=== PATIENT | male | born 1950 | race Caucasian/White ===

== ENCOUNTER 2023-10-25 12:40 | Outpatient (CLI) | payer MEDICARE, OTHER, SELFPAY | END 2023-10-25 12:41 | disposition home or self-care (01) | LOC: ANHAUDIO 12:44 | PROVIDERS: PCP Internal Medicine; Visit Provider Otolaryngology | DX: H90.3 Sensorineural hearing loss, bilateral (principal) | CPT/HCPCS: 92557; 92567 ==

== ENCOUNTER 2024-12-30 12:36 | Outpatient (CLI) | payer MEDICARE, OTHER, SELFPAY ==
--- OUTSIDE RECORDS SUMMARY | 2024-12-30 12:39 | XMS_ITS | Encounter Summary ---
Author Organization [facility] Health Address [address] [place] [address] Care Team Providers Care Rn Anesthetist Name Role Phone Maciej Castaneda MD Primary Care Provider [phone] Encounter Details Date Type Department Care Team (Late st Contact Info) Description 10/16/2022 Lab Requisition [facility] - DermPath Lab [address] [place] [phone] Cindy Hawkins DO [address] [facility] [address] [place] [address] Social History Tobacco Use Types Packs/Day Years Used Date Smoking Tobacco: Former Cigarettes 1 35 Smokeless Tobacco: Never Comments:QUIT 2YRS. 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 Gender Identity Not on file Sexual Orientation Not on file documented as of this encounter Plan of Treatment Not on file documented as of this encounter Procedures Procedure Name Priority Date/Time Associated Diagnosis Comments DERMATOPATHOLOGY Routine 10/16/2022 10:5 5 AM CDT documented in this encounter Results * DERMATOPATHOLOGY (10/16/2022 10:55 AM CDT) Case Report Dermatopathology Report Case: [id number] Authorizing Provider: Cindy aHwkins DO Collected: 10/16/2022 10:55 AM Ordering Location: [facility] DermPath Lab Received: 10/16/2022 03:53 PM Pathologist: Ernestine Cristina MD Specimen: Skin, mid upper back 3 5:38 PM CDT DERMATOPATHOLOGY LABORATORY Final Diagnosis Specimen A. 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 The specimen consists of a shave biopsy measuring 6x5x1 mm. Jar 0. 3 5:38 PM CDT DERMATOPATHOLOGY LABORATORY Microscopic Description Specimen A. SKIN, mid upper back: The epidermis shows parakeratosis, full thickness disorderly maturation of keratinocytes, mitoses at different levels, and dyskeratotic cells. 3 5:38 PM CDT DERMATOPATHOLOGY LABORATORY Disclaimer An external and internal positive and negative controls are appropriate for the histochemical, immunohistochemical and immunofluorescence stain(s) in this case (if any), except where stated explicitly. The performance characteristics of the stain(s) cited in this report were developed and its performance characteristic determined by the Dermatopathology Laboratory at [facility], directed by Dr. Kya Cristina. These tests need not be, and therefore are not, approved by the [place] Food and Drug Administration. The tests are used for clinical purposes. Billing Codes Specimen Charges Stain Charges 30835 1 3 5:38 PM CDT DERMATOPATHOLOGY LABORATORY Embedded Images 3 5:38 PM CDT DERMATOPATHOLOGY LABORATORY Pathology/Cytolo gy TISSUE SPECIMEN FROM SKIN / Unknown 10/16/2022 10:55 AM CDT 10/16/2022 3:53 PM CDT us Cindy Hawkins DO LAB - PATHOLOGY/CYTOLOGY ORDERABLES Final Result DERMATOPATHOLOGY LABORATORY [facility] - Department of Dermatology [facility] [address] [place], [place] [id number] [place] [address] documented in this encounter Visit Diagnoses Not on filedocumented in this encounter Care Teams Rn Anesthetist Relationship Specialty [place] [address] [address] [facility] [place] [address] [place] [phone] PCP - General 08/15/18 documented as of this encounter
--- OUTSIDE RECORDS SUMMARY | 2024-12-30 12:39 | XMS_ITS | Encounter Summary ---
Author Organization [facility] Address [address] [place] [address] Phone Care Team Providers Care Fuel Storage Technician Name Role Phone Sigrid Castaneda MD Primary Care Provider Ruiz Palafox MD Unavailable Simon Lloyd MD Unavailable Karin Almaguer NP Unavailable Cindy Hawkins DO Unavailable Adalberto Apple MD Unavailable Encounter Details Date Type Department Care Team (Late st Contact Info) Description 08/27/2017 Orders Only [facility] Provider, MD [address] [place] [address] Social History Tobacco Use Types Packs/Day Years Used Date Smoking Tobacco: Former Sex and Gender Information Value Date Recorded Sex Assigned at Not on file 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 us Historical Provider LAB BLOOD ORDERABLES Afia l Result documented in this encounter Visit Diagnoses Not on filedocumented in this encounter Care Teams Fuel Storage Technician Relationship Specialty Start Date End Date Sigrid Castaneda MD PCP - General 07/30/16 Ruiz Palafox MD [address] [place] [address] Radiation Oncologist Radiation Oncology 01/21/18 Simon Lloyd MD [address] [place] [address] Consulting Physician Urology 01/21/18 Karin Almaguer NP [address] [place] [address] Nurse Practitioner Nurse Practitioner 07/05/20 Cindy Hawkins DO [address] [place] [address] Referring Physician Internal Medicine 11/01/23 [place] [address] [place] [address] Consulting Physician Vascular Surgery 12/16/24 documented as of this encounter
--- OUTSIDE RECORDS SUMMARY | 2024-12-30 12:39 | XMS_ITS | Clinical Summary ---
Author Organization [facility] Address [address] [place] [address] Care Team Providers Care Nurse Unit Manager Name Role Phone Maciej Castaneda MD Primary Care Provider Ruiz Palafox MD Unavailable Simon Lloyd MD Unavailable Karin Almaguer NP Unavailable Cindy Hawkins DO Unavailable Adalberto Davis MD Unavailable Allergies No known active allergies Medications FLUoxetine 10 mg capsuleIndicati ons:Anxiety with Depression Take 1 tablet/capsule (10 mg total) by mouth nightly 0 Active lisinopriL (PRINIVIL,ZESTR IL) 10 mg tabletIndicatio ns:hypertension Take 1 tablet (10 mg total) by mouth nightly 2 Active lovastatin (MEVACOR) 20 mg tabletIndicatio ns:hyperlipidem ia Take 1 tablet (20 mg total) by mouth nightly 2 Active hydroxychloroqu ine (PLAQUENIL) 200 mg tabletIndicatio ns:Lichen Planus Take 1 tablet (200 mg total) by mouth nightly 4 Active mirtazapine (REMERON) 15 mg tabletIndicatio ns:major depressive disorder Take 1 tablet (15 mg total) by mouth nightly 4 Active cholecalciferol 25 mcg (1,000 unit) tabletIndicatio ns:Vitamin D Deficiency Take 1 tablet (1,000 Units total) by mouth nightly Active peg 400-propylene glycol (SYSTANE) 0.4-0.3 % ophthalmic solutionIndicat ions:Dry Eye Administer 1 drop into both eyes 3 (three) times a day as needed (Dry eyes) Active calcium carbonate (TUMS) 500 mg (200 mg elemental calcium) chewable tabletIndicatio ns:Heartburn Take 1 tablet/chew tab (500 mg total) by mouth as needed for indigestion or heartburn Active senna-docusate (PERICOLACE) 8.6-50 mg Take 1 tablet by mouth daily as needed for constipation 30 tablet 5 Active oxyCODONE (ROXICODONE) 5 mg immediate release tabletIndicatio ns:Pain Take 1 tablet (5 mg total) by mouth every 4 (four) hours as needed for pain 5 tablet 5 Active acetaminophen 500 mg capsule Take 2 capsules (1,000 mg total) by mouth every 6 (six) hours as needed for fever 5 Active aspirin 81 mg chewable tablet Take 1 tablet (81 mg total) by mouth daily 30 tablet 5 12/17/19 26 Active Active Problems Problem Noted Date Diagnosed Date AAA (abdominal aortic aneurysm) without rupture 12/15/2024 Infrarenal abdominal aortic aneurysm (AAA) witho ut rupture 11/13/2024 Assessment & Plan (12/15/2024 10:37 AM CDT): 12/15: s/p EVAR - Bedrest overnight - OU, Q2 hr NV checks - Monitor incisions for bleeding/hematoma - Advance diet as tolerated - Pain control - continue ASA and statin - OOB, POD #1 Moderate major depression 10/26/2024 Lichen planus 12/24/2022 Assessment & Plan (12/15/2024 10:34 AM CDT): - continue home plquenil when able Medicare annual wellness visit, subsequent 01/04 Paresthesia of skin 01/04/2021 Dyslipidemia 09/28/2020 Abnormal EKG 09/28/2020 Cervical spondylosis without myelopathy 05/29/19 20 Trigger finger 02/20/2019 Overview (02/20/2019): Added automatically from request for surgery [id number] Anxiety 10/01/2018 OAB (overactive bladder) 10/01/2018 Gastroesophageal reflux disease with esophagitis 08/18/2018 Assessment & Plan (08/18/2018 9:45 AM CDT): The patient's heartburn symptoms have improved on Protonix 40 mg daily. The patient is aware of reflux instructions. The patient's primary complaint is that of nighttime regurgitation of gastric contents. Reglan 10 mg p.o. Q.h.s. will be prescribed. The side effects of the medication were discussed. Esophageal dysphagia 08/18/2018 Assessment & Plan (08/18/2018 9:44 AM CDT): The patient's dysphagia has improved following empiric Savary dilation. Esophageal biopsies demonstrated no evidence of the eosinophilic esophagitis. History of adenomatous polyp of colon 08/18/2018 Assessment & Plan (08/18/2018 9:45 AM CDT): The patient is due for surveillance colonoscopy soon. He plans on getting a colonoscopy in February 2018. Urinary incontinence 08/12/2018 Prostate cancer 01/21/2018 Cancer Staging:Clinical:Stage I(cT1c, cN0, cM0, PSA: 6.8, Grade Group: 1) - Signed by Karin Almaguer NP on 01/21/2018 Encounter for follow-up surveillance of prostate cancer 01/21/2018 CLL (chronic lymphocytic leukemia) ([facility]) 07/2016 Chronic obstructive lung disease 11/24/2014 Dermatochalasis 08/18/2014 Hypertension 09/17/2013 Assessment & Plan (12/15/2024 10:33 AM CDT): - OU, VS q2 hrs and PRN - Home regimen: lisinopril - Resume home lisinopril when able Hyperlipidemia 09/17/2013 Contracture of palmar fascia 05/26/2013 Presbyopia 05/26/2013 Encounters Date Type Department Care Team Description 12/22/2024 Orders Only [facility] Surgery [id number] [place] [address] Medical Office Building [address] [address] Adalberto Davis MD Infrarenal abdominal aortic aneurysm (AAA) without rupture (Primary Dx) 12/17/2024 Telephone [facility] Surgery [id number] [place] [address] Medical Office Building 1 [address] [address] Ellie Khoury RMA LOW GRADE TEMP 12/15/2024 7:33 AM CDT Anesthesia Event [facility] Electrophysiology Lab [address] [place] [address] Suad Quiles MD Gilbert, Kelly L., RN 12/15/2024 7:30 AM CDT - 12/15/2024 11:[address] [facility] Electrophysiology Lab [address] [place] [address] Adalberto Davis MD EVAR - Aorta Endovascular Repair 12/15/2024 5:37 AM CDT - 12/16/2024 4:12 PM CDT Hospital Encounter [address] [address] Adalberto Davis MD Infrarenal abdominal aortic aneurysm (AAA) without rupture Discharge Disposition: Discharge to home or self care 12/08/2024 8:30 AM CDT Pre-Admission Testing [facility] for Preoperative Assessment and Planning [facility] ([facility]) [address] [place] [address] Preoperative testing (Primary Dx); Abdominal aortic aneurysm (AAA), unspecified part, unspecified whether ruptured 11/16/2024 Documentation [facility] Surgery [address] [place] [address] Medical Office Building [address] [address] Sandy Bravo NP 11/12/2024 1:07 PM CDT - 11/12/2024 11:59 PM CDT Hospital Encounter [facility] Radiology [address] [place] [address] Infrarenal abdominal aortic aneurysm (AAA) without rupture Discharge Disposition: Discharge to home or self care 11/09/2024 8:45 AM CDT Office Visit [facility] Surgery [address] [place] [address] [address] [place] [phone] Adalberto Davis MD Infrarenal abdominal aortic aneurysm (AAA) without rupture 11/09/2024 8:00 AM CDT Ancillary Procedure [facility] Vascular Lab [address] [place] [address] Office [address] [place] [phone] Infrarenal abdominal aortic aneurysm (AAA) without rupture 10/26/2024 9:40 AM CDT Office Visit [facility] [address] [place] [phone] Kelsea Campbell MD CLL (chronic lymphocytic leukemia) (CMS/HCC) (HCC) (Primary Dx); Moderate major depression (HCC); Chronic obstructive pulmonary disease, unspecified COPD type (HCC) 10/26/2024 9:15 AM CDT Lab [facility] [address] [place] [address] CLL (chronic lymphocytic leukemia) (CMS/HCC) (HCC) 10/20/2024 11:40 AM CDT Telemedicine [facility] Radiation Oncology Formerly [facility] [place] [address] Karin Almaguer NP Prostate cancer (HCC) (Primary Dx); Encounter for follow-up surveillance of prostate cancer 10/15/2024 Orders Only [facility] [place] [address] Karin Almaguer NP Prostate cancer (HCC) (Primary Dx) from Last 3 Months Immunizations Immunization Administration Dates Next Due Influenza, Quadrivalent, Krupa l Culture-based MDCK, Antibiotic Free, Intramuscular 03/04/2019 Influenza, Quadrivalent, Hig h Dose, Preservative Free, Intrr 02/09/2021,02/02/2020 Influenza, Trivalent, High D ose, Split, Preservative Free, Intramuscular 02/19/2020,02/26/2018,02/25/2018,02/18,02/09/2016,2015 Influenza, Trivalent, IM (MDV) 02/25/2014 Influenza, Unspecified 02/01/2021,2019,02/02/2020,03/04,02/18/2018,01/16/2017,02/09/2016 ,2015 Pfizer SARS-CoV-2 Monovalent Vaccination (12+ Yrs) PURPLE 03/11/2021,07/21/2020,06/29/2020 Pneumococcal Conjugate PCV 13 01/29/2019, 016 Pneumococcal Polysaccharide PPV23 02/02/2020,05/2013 Tdap 09/17/2013 ZOSTER LIVE 03/19/2016,10/14/2013 ZOSTER Recombinant 09/13/2020,05/20/2020 Surgical History Surgery Date Site/Laterality Comments FL RELEASE INTRINSIC MUSCLES HAND EACH MUSCLE 05/20/2013 - 05/19/2014 Right Release Of Finger Scar Contracture - little finger COLONOSCOPY W/ POLYPECTOMY 10/18/2018 - 11/16/2018 negative. no polyps with last colonoscopy PROSTATE BIOPSY several prior to radiation treatments. None since OTHER SURGICAL HISTORY 05/20/2018 - 06/19/2018 UROLIFT--has helped with urination. but has urinary frequency OTHER SURGICAL HISTORY PTNS-Percutaneous Tibial Nerve Stimulation for urinary incontinence treatment KNEE SURGERY 05/20/2011 - 05/19/2012 Left SHOULDER SURGERY Left INSERTION PROSTATE RADIATION SEED CARDIAC CATHETERIZATION 12/15/2024 Abdomen/N/A Procedure: EVAR - Aorta Endovascular Repair; Surgeon: Adalberto Davis MD; Location: [facility]; Service: Vascular; Laterality: N/A; Medical devices from this surgery are in the Medical Devices section. Medical History Medical History Date Comments Hypertension well controlled with meds Hyperlipidemia well controlled with meds Depression well controlled with meds Anxiety well controlled with meds Urinary frequency diff. complete ly emptying bladder Urinary incontinence being treat ed with Percutaneous tibial nerve stimulation (PTNS) Cancer (HCC) prostate--treate d with radiation only Family History Medical History Relation Name Comments Heart attack Brother Heart attack Father Cancer Other Family history of malignant neoplasm - (Added by TW Conv) Breast cancer Sister Family history of malignant neoplasm of breast - (Added by TW Conv) Relation Name Status Comments Brother (Age 59) Father (Age 63) Mother (Age 89) Other Sister Alive Social History Tobacco Use Types Packs/Day Years Used Date Smoking Tobacco: Former Cigarettes 1 39 1 97 - 2016 Passive Smoke Exposure: Never Smokeless Tobacco: Never Tobacco Cessation:Counseling Given: Not Answered Alcohol Use Standard Drinks/Week Comments Yes 3 (1 standard drink = 0.6 oz pur e alcohol) AUDIT-C Answer Date Recorded Q1: How often do you have a drink containing alcohol? 4 or more times a week 12/15/2024 Q2: How many drinks containi ng alcohol do you have on a typical day when you are drinking? 1 or 2 Q3: How often do you have si x or more drinks on one occasion? Never 12/15/2024 Personal Safety Answer Date Recorded Have you ever been in or are you currently in a harmful physical or emotional relationship or is someone making you feel afraid or unsafe? 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 Gender Identity Not on file Sexual Orientation Straight 09/25/2020 6: 45 PM CDT Obstetrics History Last Filed Vital Signs Vital Sign Reading Time Taken Comments Blood Pressure 120/58 12/16/2024 3:39 PM CDT Pulse 60 12/16/2024 3:39 PM CDT Temperature 36.7 C (98.1 F) 12/16/2024 3:39 PM CDT Respiratory Rate 18 12/16/2024 3:39 PM CDT Oxygen Saturation 95% 12/16/2024 3:39 PM CDT Inhaled Oxygen Concentration - - Weight 98.2 kg (216 lb 9.6 oz) 12/15/2024 1:02 P M CDT Height 167.6 cm (5' 6) 12/15/2024 1:02 PM CDT Body Mass Index 34.96 12/15/2024 1:02 PM CDT Plan of Treatment Health Maintenance Due Date Last Done Comments Hepatitis C Screening 1950 Hepatitis B Screening 1966 Lung Cancer Screening 1998 Well Visit 65+ 2013 Depression Screening 01/01/2019 01/01/2018 DTaP/Tdap/Td Vaccine (2 - Td or Tdap) 09/18/2023 09/17/2013 Covid-19 Vaccine (4 - 2023-2 5 season) 2024 03/11/2021, 07/21/2020, 06/29/2020 Influenza Vaccine (#1) 2025 , 02/01/2021, 02/19/2020, Additional history exists Fall Risk Assessment 12/16/2025 12/16/2024 Pneumococcal vaccine 65+ Completed 020, 01/29/2019, 02/29/2016, Additional history exists Zoster Vaccine Completed 09/13/2020, 05/2020, 03/19/2016, Additional history exists Abdominal Aortic Aneurysm (A AA) Screen Completed 12/22/2024, 12/15/2024, 12/08/2024, Additional history exists Medical Devices Implanted Type Area Scientific Software Developer Device Identifier Shelf Expiration Date Model / Serial / Lot [employer] Stent Graft Iliac Leg Extension [id number] Treo Polyester Nitinol 40-H9-70-100 u - [id number] Implanted:Qt y: 1 on 12/15/2024 by Neo Gibson MD at [facility] Endoprosthesis Left: Common Iliac Artery [employer] 06/19/2027 28-L2-17 -100U / / [id number] [employer] Stent Graft Iliac Leg Extension [id number] Treo Polyester Nitinol 74-O9-65-100 u - [id number] Implanted:Qt y: 1 on 12/15/2024 by Neo Gibson MD at [facility] Endoprosthesis Right: Common Iliac Artery [employer] 01/02/2027 28-L2-15 -100U / / [id number] [employer] Closure Repair Femoral Artery Suture Mediated Perclose Prostyle 41592-60 - [id number] Implanted:Qt y: 1 on 12/15/2024 by Neo Gibson MD at [facility] Vascular Closure Device Right: Common Femoral Artery [employer] 08/17/2026 00124-91 / / [id number] [employer] Closure Repair Femoral Artery Suture Mediated Perclose Prostyle 34217-68 - [id number] Implanted:Qt y: 1 on 12/15/2024 by Neo Gibson MD at [facility] Vascular Closure Device Right: Common Femoral Artery [employer] 08/17/2026 09340-19 / / [id number] [employer] Closure Repair Femoral Artery Suture Mediated Perclose Prostyle 46701-46 - [id number] Implanted:Qt y: 1 on 12/15/2024 by Neo Gibson MD at [facility] Vascular Closure Device Left: Common Femoral Artery [employer] 08/17/2026 83657-54 / / [id number] [employer] Closure Repair Femoral Artery Suture Mediated Perclose Prostyle 86336-80 - [id number] Implanted:Qt y: 1 on 12/15/2024 by Neo Gibson MD at [facility] Vascular Closure Device Left: Common Femoral Artery [employer] 08/17/2026 44049-05 / / [id number] [employer] Closure Repair Femoral Artery Suture Mediated Perclose Prostyle 61115-46 - [id number] Implanted:Qt y: 1 on 12/15/2024 by Neo Gibson MD at [facility] Vascular Closure Device Right: Common Femoral Artery [employer] 08/17/2026 24691-76 / / [id number] [employer] Graft Treo Abd Aortic Stent 24mm Bifurcate 100mm 87-Y4-79-100 u - [id number] Implanted:Qt y: 1 on 12/15/2024 by Neo Gibson MD at [facility] N/A: Abdominal Aorta [employer] 06/28/2027 28-B2-24 -100U / / [id number] Description:Treo Main Body Z one 9 Procedures Procedure Name Priority Date/Time Associated Diagnosis Comments POTASSIUM, WHOLE BLOOD STAT 12/16/2024 8:37 AM CDT EGFR Routine 12/16/2024 5:19 AM CDT BASIC METABOLIC PANEL Routine 12/16/2024 5:19 AM CDT CBC WITHOUT DIFFERENTIAL Routine 12/16/2024 5:19 AM CDT EVAR - AORTA ENDOVASCULAR REPAIR Routine 12/15/2024 10:24 AM CDT Infrarenal abdominal aortic aneurysm (AAA) without rupture POCT ACTIVATED CLOTTING TIME, LOW RANGE Routine 12/15/2024 10:24 AM CDT POCT ACTIVATED CLOTTING TIME, LOW RANGE Routine 12/15/2024 9:50 AM CDT FL AN PROCEDURE PLACEHOLDER Routine 12/15/2024 9:44 AM CDT POCT ACTIVATED CLOTTING TIME, LOW RANGE Routine 12/15/2024 9:17 AM CDT POCT ACTIVATED CLOTTING TIME, LOW RANGE Routine 12/15/2024 9:08 AM CDT POCT ACTIVATED CLOTTING TIME, LOW RANGE Routine 12/15/2024 9:01 AM CDT FL AN PROCEDURE PLACEHOLDER Routine 12/15/2024 8:33 AM CDT FL AN ELECTIVE ENDOTRACHEAL AIRWAY Routine 12/15/2024 8:33 AM CDT FL AN PROCEDURE PLACEHOLDER Routine 12/15/2024 8:03 AM CDT POC BLOOD GAS AND CHEMISTRIES, ARTERIAL Routine 12/15/2024 6:29 AM CDT MANUAL DIFFERENTIAL Routine 12/08/2024 9 :40 AM CDT Preoperative testing SENIOR STAFF REVIEW Routine 12/08/2024 9 :40 AM CDT Preoperative testing Abdominal aortic aneurysm (AAA), unspecified part, unspecified whether ruptured EGFR Routine 12/08/2024 9:40 AM CDT Preoperative testing COMPREHENSIVE METABOLIC PANEL Routine 12/08/2024 9:40 AM CDT Preoperative testing CBC WITH AUTO DIFFERENTIAL Routine 12/08/2024 9:40 AM CDT Preoperative testing TYPE AND SCREEN 14 DAY Routine 12/08/2024 9:40 AM CDT Preoperative testing CPAP APTT ALGORITHM Routine 12/08/2024 9 :40 AM CDT Preoperative testing PROTIME-INR Routine 12/08/2024 9:40 AM CDT Preoperative testing Abdominal aortic aneurysm (AAA), unspecified part, unspecified whether ruptured URINALYSIS AND REFLEX TO MICROSCOPIC AND CULTURE Routine 12/08/2024 9:40 AM CDT Preoperative testing ECG 12-LEAD Routine 12/08/2024 9:01 AM CDT Preoperative testing CTA ABDOMEN PELVIS W WO CONTRAST Schedule Routine, Read Routine (OP Routine) 11/12/2024 1:29 PM CDT Infrarenal abdominal aortic aneurysm (AAA) without rupture US DUPLEX SCAN OF AORTA: INFERIOR VENA CAVA, ILIAC, COMPLETE Schedule Routine, Read Routine (OP Routine) 11/09/2024 8:33 AM CDT Infrarenal abdominal aortic aneurysm (AAA) without rupture EGFR Routine 10/26/2024 8:58 AM CDT CLL (chronic lymphocytic leukemia) (CMS/HCC) (HCC) BLOOD SMEAR REVIEW Routine 10/26/2024 8: 58 AM CDT CLL (chronic lymphocytic leukemia) (CMS/HCC) (HCC) DIFFERENTIAL AUTO Routine 10/26/2024 8:5 8 AM CDT CLL (chronic lymphocytic leukemia) (CMS/HCC) (HCC) CRP, HIGH SENSITIVITY Routine 10/26/2024 8:58 AM CDT CLL (chronic lymphocytic leukemia) (CMS/HCC) (HCC) IMMUNE COMPETENCE Routine 10/26/2024 8:5 8 AM CDT CLL (chronic lymphocytic leukemia) (CMS/HCC) (HCC) IGG Routine 10/26/2024 8:58 AM CDT CLL (chronic lymphocytic leukemia) (CMS/HCC) (HCC) COMPREHENSIVE METABOLIC PANEL Routine 10/26/2024 8:58 AM CDT CLL (chronic lymphocytic leukemia) (CMS/HCC) (HCC) CBC WITH AUTO DIFFERENTIAL Routine 10/26/2024 8:58 AM CDT CLL (chronic lymphocytic leukemia) (CMS/HCC) (HCC) LACTATE DEHYDROGENASE Routine 10/26/2024 8:58 AM CDT CLL (chronic lymphocytic leukemia) (CMS/HCC) (HCC) PSA, TOTAL AND FREE Routine 10/15/2024 1 :17 PM CDT Prostate cancer (HCC) from Last 3 Months Results * Potassium, whole blood (12/16/2024 8:37 AM CDT) Pathologist [facility] Potassium, bld 4.7 3.3 - 4.9 mmol/L Blood 12/16/2024 8:37 AM CDT 12/16/2024 8:46 AM CDT Ani Hare PATTERN ATTENDANT LAB BLOOD ORDERABLES Fin al Result [facility] Department [place] [address] * (ABNORMAL) eGFR (12/16/2024 5:19 AM CDT) Pathologist [facility] eGFR 48(L) >=60 mL/min/1. 73 m2 Comment: Interpretive Data Reference Interval Normal >/= 90 mL/min/1.73m2 Mildly decreased* 60 - 89 mL/min/1.73m2 Mildly to moderately decreased 45 - 59 mL/min/1.73m2 Moderately to severely decreased 30 - 44 mL/min/1.73m2 Severely decreased 15 - 29 mL/min/1.73m2 Kidney Failure < 15 mL/min/1.73m2 *Relative to young adult level Estimated glomerular filtration rate is determined by the 2020 CKD-EPI equation recommended by the National Kidney Foundation (A Unifying Approach to GFR Estimation: Recommendations of the NKF-ASK Task Force on Reassessing the Inclusion of Race in Diagnosing Kidney Disease, JASN 2020). The CKD-EPI equation should not be used for patients with unstable renal function and has not been validated in children and those over 70. Current interpretive data was last reviewed 2021. Blood 12/16/2024 5:19 AM CDT 12/16/2024 6:55 AM CDT Adalberto Davis MD LAB BLOOD ORDERABLES Final R esult [facility] [place] [address] * (ABNORMAL) CBC without differential (12/16/2024 5:19 AM CDT) WBC 30.26(H) 3.80 - 9.90 K/cumm Hgb 11.2(L) 13.0 - 17.5 g/dL [facility] Hct 34.3(L) 38.9 - 50.3 % [facility] Plt 170 150 - 400 K/cumm [facility] MPV 10.9 9.1 - 12.3 fL [facility] RBC 3.59(L) 4.30 - 5.80 M/cumm [facility] MCV 95.5 81.3 - 96.4 fL [facility] MCH 31.2 27.1 - 33.3 pg [facility] MCHC 32.7 32.3 - 35.7 g/dL [facility] RDW CV 13.2 11.1 - 14.9 % [facility] RDW SD 46.4 35.7 - 48.1 fL [facility] NRBC abs 0.00 0.00 - 0.01 K/cumm [facility] Blood 12/16/2024 5:19 AM CDT 12/16/2024 6:56 AM CDT Adalberto Davis MD LAB BLOOD ORDERABLES Final R esult Performing Organization Address City/[facility]/ZIP Co de Phone Number [facility] [place] [address] * (ABNORMAL) Basic metabolic panel (12/16/2024 5:19 AM CDT) Sodium 140 135 - 145 mmol/L Potassium, pl 5.2(H) 3.3 - 4.9 mmol/L [facility] Chloride 107 97 - 110 mmol/L [facility] CO2 24 22 - 32 mmol/L [facility] Anion gap 9 2 - 15 mmol/L [facility] BUN 25 6 - 25 mg/dL [facility] Creatinine 1.49(H) 0.80 - 1.30 mg/dL [facility] Glucose 125 70 - 199 mg/dL [facility] Comment: Interpretive Data Fasting glucose >/= 126 mg/dl is diagnostic for diabetes. Fasting is defined as no caloric intake for at least 8 hours. Fasting glucose between 100 mg/dl to 125 mg/dl is diagnostic of prediabetes. In a patient with classic symptoms of hyperglycemia or hyperglycemic crisis, a random glucose >/= 200 mg/dl is diagnostic for diabetes. In the absence of unequivocal hyperglycemia, results should be confirmed by repeat testing. The classification and Diagnosis of Diabetes Diabetes Care 202; 46: S19-S40. Current interpretive data was last revised 2022. Calcium 8.6 8.5 - 10.3 mg/dL [facility] Blood 12/16/2024 5:19 AM CDT 12/16/2024 6:55 AM CDT Adalberto Davis MD LAB BLOOD ORDERABLES Final R esult Performing Organization Address [facility]/State/ZIP Co de Phone Number [facility] [place] [address] * EVAR - AORTA ENDOVASCULAR REPAIR (12/15/2024 10:24 AM CDT) Anatomical Region Laterality Modality X-Ray Angiograph y Narrative 12/16/2024 3:27 PM CDT Please see OpNote for result. Adalberto Davis MD CV CARDIAC CATH PROCEDURES F inal Result * POCT Activated clotting time, low range (12/15/2024 10:24 AM CDT) ACT 126 123 - 168 sec POC Device Number [id number] [facility] Blood 12/15/2024 10:2 4 AM CDT 12/15/2024 10:24 AM CDT Adalberto Davis MD LAB POCT ORDERABLES - DEVICE Final Result Performing Organization Address City/[facility] Co de Phone Number [facility] [place] [address] * (ABNORMAL) POCT Activated clotting time, low range (12/15/2024 9:50 AM CDT) ACT 255(H) 123 - 168 sec POC Device Number [id number] [facility] Blood 12/15/2024 9:50 AM CDT 12/15/2024 9:50 AM CDT Adalberto Davis MD LAB POCT ORDERABLES - DEVICE Final Result [facility] Department [place] [employer] [place] [address] * FL AN PROCEDURE PLACEHOLDER (12/15/2024 9:44 AM CDT) Narrative Kyra Gonzales CRNA - 12/15/2024 9:44 AM CDT Kyra Gonzales CRNA 12/15/2024 9:45 AM Peripheral IV Catheter Patient location: OR Staff: Supervising provider: Suad Quiles MD Placed by: LABORER STORES: Kyra Gonzales CRNA Preprocedure prep: Prep solution: chlorhexadine PPE: gloves and provider hat/mask PIV line: Laterality: right Site: hand Catheter size: 18 g Procedure details: good blood return and occlusive dressing applied Number of attempts: 2 Other sites attempted: one attempt pts right FA. soft yves pressure dressing applied and secured with tape Assessment: Events: patient tolerated procedure well with no complications us Suad Quiles MD ANESTHESIA ORDERABLES Fi nal Result * (ABNORMAL) POCT Activated clotting time, low range (12/15/2024 9:17 AM CDT) ACT 282(H) 123 - 168 sec POC Device Number [id number] [facility] Blood 12/15/2024 9:17 AM CDT 12/15/2024 9:17 AM CDT Adalberto Davis MD LAB POCT ORDERABLES - DEVICE Final Result Performing Organization Address [facility] Co de Phone Number [facility] [place] [place] [address] * (ABNORMAL) POCT Activated clotting time, low range (12/15/2024 9:08 AM CDT) ACT 244(H) 123 - 168 sec POC Device Number [id number] [facility] Blood 12/15/2024 9:08 AM CDT 12/15/2024 9:08 AM CDT Adalberto Davis MD LAB POCT ORDERABLES - DEVICE Final Result Performing Organization Address City/[facility]/ZIP Co de Phone Number [facility] [employer] [place] [place] [address] * (ABNORMAL) POCT Activated clotting time, low range (12/15/2024 9:01 AM CDT) ACT 229(H) 123 - 168 sec POC Device Number [id number] [facility] Blood 12/15/2024 9:01 AM CDT 12/15/2024 9:01 AM CDT us Adalberto Davis MD LAB POCT ORDERABLES - DEVICE Final Result [facility]ACK RIVER[facility] [place] [address] * FL AN ELECTIVE ENDOTRACHEAL AIRWAY, FL AN PROCEDURE PLACEHOLDER (12/15/2024 8:33 AM CDT) Narrative Kyra Gonzales CRNA - 12/15/2024 8:33 AM CDT Kyra Gonzales CRNA 12/15/2024 8:33 AM Airway Patient location: OR Urgency: elective Date/time: 12/15/2024 7:53 AM Indications for airway management: anesthesia Difficult airway: no Staff: Supervising provider: Suad Quiles MD Placed by: LABORER STORES: Kyra Gonzales CRNA Emergent airway documentation: Risks and benefits discussed: yes Consent obtained: yes Consent given by: patient Airway prep: Preoxygenated: yes Patient position: sniffing Mask difficulty assessment: 2 - vent by mask + OA or adjuvant Spontaneous ventilation during airway: absent Sedation level during airway: GA Final airway details: Final airway type: endotracheal airway Tube type: ETT ETT size: 8.0 mm Cuffed: yes Technique used for successful ETT placement: video laryngoscopy Devices/Methods used in placement: stylet Insertion site: oral Blade type: Brandon Video blade type: De Luna Blade size: 4 Cormack-Lehane (video): grade I - full view of glottis Cuff volume: 8 mL Cuff inflated with: air ETT to lips: 22.5 cm Placement verified by: auscultation and CO2 detection Airway secured with: silk tape Number of attempts: 1 us Suad Quiles MD ANESTHESIA ORDERABLES Fi nal Result * FL AN PROCEDURE PLACEHOLDER (12/15/2024 8:03 AM CDT) Narrative Kyra Gonzales CRNA - 12/15/2024 8:03 AM CDT Kyra Gonzales CRNA 12/15/2024 8:07 AM Arterial Line End time: 12/15/2024 8:03 AM Indication: continuous blood pressure monitoring and blood sampling needed Staff: Supervising provider: Suad Quiles MD Placed by: Anesthesiologist: Suad Quiles MD Procedure prep: Prep solution: chlorhexadine/alcohol Prep: provider hat/mask, sterile gloves and sterile drape Arterial line: Catheter size: 20 gauge Catheter length: 5 cm Catheter type: wire-guided catheter Seldinger technique: yes Laterality: left Site: radial artery Line secured: tape and Tegaderm Results: good waveform and good blood return Number of attempts: 1 Assessment: Events: patient tolerated procedure well with no complications us Suad Quiles MD ANESTHESIA ORDERABLES Fi nal Result * (ABNORMAL) POC Blood Gas and Chemistries, Arterial - (12/15/2024 6:29 AM CDT) K POC 5.0(H) 3.3 - 4.9 mmol/L Comment: Interpretive Data Not all point of care methods assess for hemolysis. Confirm with instrument and retest K+ if not consistent with clinical signs and symptoms. Current Interpretive Data was last revised on 2023. Blood 12/15/2024 6:29 AM CDT 12/15/2024 6:29 AM CDT us Adalberto Davis MD LAB POCT ORDERABLES - DEVICE Final Result [facility]ACK RIVERA [facility] [place] [address] * TYPE AND SCREEN 14 DAY (12/08/2024 9:40 AM CDT) Owen, indirect Negative ABO Rh A Negative JACK GUERRA Blood 12/08/2024 9:40 AM CDT 12/08/2024 10:58 AM CDT Narrative [facility] - 12/08/2024 11:45 AM CDT Is this test being ordered in advance for a procedure?->Yes Expected date of procedure:->12/15/24 Has the patient been transfused in the past 3 months?->No Cecy Pollard NP LAB BLOOD BANK TEST ORD ERABLES Final Result Performing Organization Address [facility] Co de Phone Number [facility] [employer] [place] [place] [address] * (ABNORMAL) eGFR (12/08/2024 9:40 AM CDT) eGFR 54(L) >=60 mL/min/1. 73 m2 Comment: Interpretive Data Reference Interval Normal >/= 90 mL/min/1.73m2 Mildly decreased* 60 - 89 mL/min/1.73m2 Mildly to moderately decreased 45 - 59 mL/min/1.73m2 Moderately to severely decreased 30 - 44 mL/min/1.73m2 Severely decreased 15 - 29 mL/min/1.73m2 Kidney Failure < 15 mL/min/1.73m2 *Relative to young adult level Estimated glomerular filtration rate is determined by the 2020 CKD-EPI equation recommended by the National Kidney Foundation (A Unifying Approach to GFR Estimation: Recommendations of the NKF-ASK Task Force on Reassessing the Inclusion of Race in Diagnosing Kidney Disease, JASN 2020). The CKD-EPI equation should not be used for patients with unstable renal function and has not been validated in children and those over 70. Current interpretive data was last reviewed 2021. Blood 12/08/2024 9:40 AM CDT 12/08/2024 11:01 AM CDT Cecy Pollard PATTERN ATTENDANT LAB BLOOD ORDERABLES Fi nal Result Performing Organization Address [facility]/ZIP Co de Phone Number [facility] [place] [employer] [place] [address] * Senior staff review (12/08/2024 9:40 AM CDT) Senior Staff Review Specimen Blood Senior Staff Review Review Done [facility] Comment:Reviewed by senior gerald quick.12/08/2024 13:39:10 CDT by Blood 12/08/2024 9:40 AM CDT 12/08/2024 12:37 PM CDT Narrative [facility] - 12/08/2024 1:39 PM CDT Adalberto Davis MD LAB BLOOD ORDERABLES Edited Result - Final Performing Organization Address [facility] Co de Phone Number [facility] [place] [place] [address] * (ABNORMAL) CPAP aPTT algorithm (12/08/2024 9:40 AM CDT) Pathologist [facility] aPTT 26(L) 28 - 38 sec Comment: Interpretive Data Heparin therapeutic range: 66.0 - 100.0 seconds. Range based on correlation with therapeutic heparin activity range of 0.3 - 0.7 Units/mL. Current interpretive data was last revised on 2023. Blood 12/08/2024 9:40 AM CDT 12/08/2024 10:[address] [facility] Cecy Pollard NP LAB BLOOD ORDERABLES Fi nal Result Performing Organization Address [facility] Co de Phone Number [facility] [employer] [place] [employer] [place] [address] * Urinalysis reflex to microscopic and culture Urine, clean voided (12/08/2024 9:40 AM CDT) Color, ur Straw Yellow Clarity, ur Clear Clear [facility] Specific gravity, ur 1.019 1.003 - 1.030 [facility] pH, urine 6.0 [facility] Comment: Interpretive Data U rine pH is affected by diet, medications, systemic acid-base disturbances, and renal tubular function. pH may affect urinary stone formation. For example, urine pH below 6.0 may help reduce the tendency for calcium phosphate stones and pH greater than 6.0 may reduce the tendency for uric acid stone formation. Source: [facility] Current Interpretive Data was last revised on 2017 Protein, ur ql Trace Negative [facility] Glucose, ur ql Negative Negative [facility] Ketones, ur Negative Negative [facility] Bilirubin, ur Negative Negative [facility] Blood, ur Negative Negative [facility] Urobilinogen, ur <2.0 <2.0 mg/dL [facility] Nitrite, ur Negative Negative [facility] Leukocyte esterase, ur Negative Negative [facility] UA reflex comment Reflex conditions for microscopic UA and culture not met. [facility] Urine, clean voided 12/08/2024 9:40 AM CDT 12/08/2024 10:59 AM CDT Cecy Pollard PATTERN ATTENDANT LAB MICROBIOLOGY - [facility] ORDERABLES Final Result [facility] [place] [address] * (ABNORMAL) CBC with auto differential (12/08/2024 9:40 AM CDT) WBC 33.40(H) 3.80 - 9.90 K/cumm Hgb 13.3 13.0 - 17.5 g/dL [facility] Hct 42.4 38.9 - 50.3 % [facility] Plt 174 150 - 400 K/cumm [facility] MPV 10.6 9.1 - 12.3 fL [facility] RBC 4.33 4.30 - 5.80 M/cumm [facility] MCV 97.9(H) 81.3 - 96.4 fL [facility] MCH 30.7 27.1 - 33.3 pg [facility] MCHC 31.4(L) 32.3 - 35.7 g/dL [facility] RDW CV 13.3 11.1 - 14.9 % [facility] RDW SD 47.4 35.7 - 48.1 fL [facility] NRBC abs 0.00 0.00 - 0.01 K/cumm [facility] Morphologic Screen Results confirmed by manual morphology review. [facility] Blood 12/08/2024 9:40 AM CDT 12/08/2024 12:37 PM CDT Cecy Pollard PATTERN ATTENDANT LAB BLOOD ORDERABLES Ed ited Result - Final Performing Organization Address City/[facility] Co de Phone Number [facility] [place] [address] * (ABNORMAL) Manual Differential (12/08/2024 9:40 AM CDT) Differential Manual Cells Counted 103 [facility] Neutrophil abs 1.64 1.50 - 6.50 K/cumm [facility] Lymphocyte abs 31.76(H) 0.80 - 3.30 K/cumm [facility] Neutrophil pct 4.9 % [facility] Comment: Interpretive Data Percent cell count reference ranges are not reported, since discordance with absolute values may lead to misinterpretation of CBC data. Current Interpretive Data was last revised on 2017. Lymphocyte pct 87.3 % [facility] Comment: Interpretive Data Percent cell count reference ranges are not reported, since discordance with absolute values may lead to misinterpretation of CBC data. Current Interpretive Data was last revised on 2017. Variant lymph pct 7.8(H) 0.0 - 0.0 % [facility] Blood 12/08/2024 9:40 AM CDT 12/08/2024 12:37 PM CDT Cecy Pollard PATTERN ATTENDANT LAB BLOOD ORDERABLES Fi nal Result Performing Organization Address City/[facility] Co de Phone Number [facility] [place] [address] * Protime-INR (12/08/2024 9:40 AM CDT) PT 10.2 9.7 - 13.0 sec INR 0.95 0.90 - 1.20 [facility] Comment: Interpretive data Oral anticoagulant therapeutic ranges: Venous thromboembolism prophylaxis or treatment: 2.0-3.0 CARDIOLOGY Standard range: 2.0-3.0 High-intensity range: 2.5-3.5 Refer to indication-specific guidelines for appropriate target ranges for prosthetic heart valve replacement. Current interpretive data was last revised on 2019. Blood 12/08/2024 9:40 AM CDT 12/08/2024 10:59 AM CDT us Cecy Pollard PATTERN ATTENDANT LAB BLOOD ORDERABLES Fi nal Result [facility] [place] [address] * (ABNORMAL) Comprehensive metabolic panel (12/08/2024 9:40 AM CDT) Sodium 139 135 - 145 mmol/L Potassium, pl 5.4(H) 3.3 - 4.9 mmol/L [facility] Chloride 104 97 - 110 mmol/L [facility] CO2 28 22 - 32 mmol/L [facility] Anion gap 7 2 - 15 mmol/L [facility] BUN 25 6 - 25 mg/dL [facility] Creatinine 1.36(H) 0.80 - 1.30 mg/dL [facility] Glucose 95 70 - 199 mg/dL [facility] Comment: Interpretive Data Fasting glucose >/= 126 mg/dl is diagnostic for diabetes. Fasting is defined as no caloric intake for at least 8 hours. Fasting glucose between 100 mg/dl to 125 mg/dl is diagnostic of prediabetes. In a patient with classic symptoms of hyperglycemia or hyperglycemic crisis, a random glucose >/= 200 mg/dl is diagnostic for diabetes. In the absence of unequivocal hyperglycemia, results should be confirmed by repeat testing. The classification and Diagnosis of Diabetes Diabetes Care 202; 46: S19-S40. Current interpretive data was last revised 2022. Calcium 9.5 8.5 - 10.3 mg/dL [facility] Bilirubin, total 0.4 0.1 - 1.2 mg/dL [facility] Protein, pl 7.1 6.5 - 8.5 g/dL [facility] Albumin 4.5 3.5 - 5.0 g/dL [facility] Alk phos 78 40 - 130 Units/L [facility] ALT 18 7 - 55 Units/L [facility] AST 24 10 - 50 Units/L [facility] Blood 12/08/2024 9:40 AM CDT 12/08/2024 11:01 AM CDT us Cecy Pollard PATTERN ATTENDANT LAB BLOOD ORDERABLES Fi nal Result Performing Organization Address City/[facility]/ZIP Co de Phone Number [facility] [place] [address] * ECG 12 lead (12/08/2024 9:01 AM CDT) Ventricular Rate EKG/Min 52 BPM [facility] Atrial Rate 52 BPM [facility] FL-Interval (MSEC) 198 ms [facility] QRS-Interval (MSEC) 88 ms [facility] QT-Interval (MSEC) 410 ms [facility] QTc 381 ms [facility] P [place] 60 degrees [facility] R [place] 60 degrees [facility] T [place] 57 degrees [facility] Diagnosis Sinus bradycardia Otherwise normal ECG No previous ECGs available Confirmed by JAYDEN BRUSH M.D ([id number]) on 12/08/2024 8:22:30 PM [facility] 12/08/2024 9:01 AM CDT 12/08/2024 8:22 PM CDT Cecy Pollard PATTERN ATTENDANT ECG ORDERABLES Final R esult [facility] * CTA Abdomen Pelvis (11/12/2024 1:29 PM CDT) Anatomical Region Laterality Modality Body N/A Computed Tomogra phy 11/12/2024 1:42 PM CDT Impressions 11/12/2024 1:42 PM CDT Infrarenal abdominal aortic aneurysm measuring 5.5 cm in maximal dimension. Significant eccentric thrombus. No findings to suggest instability at this time. Electronically signed by: Uriah Monteiro M.D. Narrative 11/12/2024 1:42 PM CDT EXAMINATION: CTA ABDOMEN PELVIS. 3-D reconstruction. HISTORY: AAA TECHNIQUE: CT angiography of the abdomen and pelvis with and without intravenous contrast. Post-processed 3D images were generated on a dedicated workstation and also reviewed. FINDINGS: Lung bases are unremarkable. No pleural effusion. Imaged base of heart is unremarkable. Moderate hiatal hernia. Stomach is nondistended. Spleen and liver are unremarkable. Gallbladder is nondistended. Pancreas is unremarkable. Adrenal glands are normal. No hydronephrosis. Urinary bladder is decompressed. Prostate is enlarged with fiducial markers. Appendix is normal. Diverticulosis. No lymphadenopathy. 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 Infrarenal abdominal aortic aneurysm measuring up to 5.5 cm. There is significant the central thrombus within the aneurysm sac. No acute or suspicious osseous abnormality. VASCULAR FINDINGS: Abdominal Aorta and Branches: Celiac axis: no significant stenosis SMA: no significant stenosis BERNICE: no significant stenosis 2 Right renal vessels: no significant stenosis 2 Left renal vessels: no significant stenosis Infrarenal aorta: no significant stenosis Infrarenal abdominal aortic aneurysm measuring up to 5.5 cm. There is significant the central thrombus within the aneurysm sac Pelvic Vessels: R. Common iliac artery: no significant stenosis R. External iliac artery: no significant stenosis R. Internal iliac artery: no significant stenosis L. Common iliac artery: no significant stenosis L. External iliac artery: no significant stenosis L. Internal iliac artery: no significant stenosis Procedure Note Uriah Monteiro MD - 11/12/2024 EXAMINATION: CTA ABDOMEN PELVIS. 3-D reconstruction. HISTORY: AAA TECHNIQUE: CT angiography of the abdomen and pelvis with and without intravenous contrast. Post-processed 3D images were generated on a dedicated workstation and also reviewed. FINDINGS: Lung bases are unremarkable. No pleural effusion. Imaged base of heart is unremarkable. Moderate hiatal hernia. Stomach is nondistended. Spleen and liver are unremarkable. Gallbladder is nondistended. Pancreas is unremarkable. Adrenal glands are normal. No hydronephrosis. Urinary bladder is decompressed. Prostate is enlarged with fiducial markers. Appendix is normal. Diverticulosis. No lymphadenopathy. 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 Infrarenal abdominal aortic aneurysm measuring up to 5.5 cm. There is significant the central thrombus within the aneurysm sac. No acute or suspicious osseous abnormality. VASCULAR FINDINGS: Abdominal Aorta and Branches: Celiac axis: no significant stenosis SMA: no significant stenosis BERNICE: no significant stenosis 2 Right renal vessels: no significant stenosis 2 Left renal vessels: no significant stenosis Infrarenal aorta: no significant stenosis Infrarenal abdominal aortic aneurysm measuring up to 5.5 cm. There is significant the central thrombus within the aneurysm sac Pelvic Vessels: R. Common iliac artery: no significant stenosis R. External iliac artery: no significant stenosis R. Internal iliac artery: no significant stenosis L. Common iliac artery: no significant stenosis L. External iliac artery: no significant stenosis L. Internal iliac artery: no significant stenosis IMPRESSION: Infrarenal abdominal aortic aneurysm measuring 5.5 cm in maximal dimension. Significant eccentric thrombus. No findings to suggest instability at this time. Electronically signed by: Uriah Monteiro M.D. us Adalberto Davis MD IMG CT PROCEDURES Final Resu lt * US Duplex Scan of Aorta; Inferior Vena Cava, Iliac, Complete (11/09/2024 8:33 AM CDT) Anatomical Region Laterality Modality Vascular Ultrasound 11/09/2024 7:43 AM CDT Narrative 11/09/2024 4:46 PM CDT [facility] - Department of Vascular Surgery, Vascular Laboratory [address] [place] [address] Abdominal Aortic Duplex Ultrasound Report Patient Name: ARELIS GONZALES : 1950 Study Date: 11/09/2024 7:43:59 AM Gender: M Tech: TT Location: [facility] Provider: ADALBERTO DAVIS Quality: Adequate Order Provider: ADALBERTO DAVIS PROCEDURES: Arterial Report: Duplex ultrasound imaging of the abdominal aorta. INDICATIONS: I71.43 Infrarenal abdominal aortic aneurysm, without rupture. MEASUREMENTS: Aorta Value Units Arteries Value Units Prox (Celiac Level) A/P 2.23 cm RT DEB Diameter Prox 1.13 cm Prox (Celiac Level) Trans 2.21 cm RT DEB PSV Prox 104.00 cm/s Prox PSV 65.00 cm/sec RT EIA Diameter Prox 0.65 cm Mid (Juxtarenal) A/P 2.53 cm RT EIA PSV Prox 121.00 cm/s Mid (Juxtarenal) Trans 2.46 cm LT DEB Diameter Prox 1.05 cm Mid (Infrarenal) A/P 5.12 cm LT DEB PSV Prox 93.00 cm/s Mid (Infrarenal) Trans 5.57 cm LT EIA Diameter Prox 0.65 cm Mid PSV 60.00 cm/sec LT EIA PSV Prox 108.00 cm/s Distal (Infrarenal) A/P 3.99 cm Distal (Infrarenal) Trans 4.32 cm Distal PSV 59.00 cm/sec Aorta Value Units Arteries Value Units FINDINGS: Performing Deli Cutter Slicer: Tom Menendez RVT. Study Quality: Adequate. Abdominal Aorta: Infrarenal abdominal aortic aneurysm measurin.12 by 5.57 cm. Normal bilateral proximal DEB and EIA. Provider Notification: Results called on the above date to Adalberto Davis MD at 8:10am on 11-09-24. CONCLUSIONS: 1. Abdominal aortic aneurysm, maximum diameter 5.57cm. HISTORY: 5.1cm by 5.2 cm per CTA 02-07-24. PREVIOUS STUDIES: No previous studies for comparison. DISCLAIMER: The study images and the final report will be retained in the patient chart by the Vascular Laboratory for the legally required time period. This chart constitutes the legal record of any testing performed. ATTESTATION: I have reviewed and interpreted the pertinent images and measurements of this study. I attest to the conclusions in the final report that is provided above. Electronically Signed By: Adalberto TOWNSEND OR 11/09/2024 4:00:17 PM CDT Procedure Note Adalberto Davis MD - 11/09/2024 [facility] - Department of Vascular Surgery,Vascular Laboratory [address] [place] [address] Abdominal Aortic Duplex Ultrasound Report Patient Name: ARELIS GONZALES : 1950 Study Date: 11/09/2024 7:43:59 AM Gender: M Tech: TT Location: [facility] Provider: ADALBERTO DAVIS Quality: Adequate Order Provider: ADALBERTO DAVIS PROCEDURES: Arterial Report: Duplex ultrasound imaging of the abdominal aorta. INDICATIONS: I71.43 Infrarenal abdominal aortic aneurysm, without rupture. MEASUREMENTS: Aorta Value Units Arteries Value Units Prox (Celiac Level) A/P 2.23 cm RT DEB Diameter Prox 1.13 cm Prox (Celiac Level) Trans 2.21 cm RT DEB PSV Prox 104.00 cm/s Prox PSV 65.00 cm/sec RT EIA Diameter Prox 0.65 cm Mid (Juxtarenal) A/P 2.53 cm RT EIA PSV Prox 121.00 cm/s Mid (Juxtarenal) Trans 2.46 cm LT DEB Diameter Prox 1.05 cm Mid (Infrarenal) A/P 5.12 cm LT DEB PSV Prox 93.00 cm/s Mid (Infrarenal) Trans 5.57 cm LT EIA Diameter Prox 0.65 cm Mid PSV 60.00 cm/sec LT EIA PSV Prox 108.00 cm/s Distal (Infrarenal) A/P 3.99 cm Distal (Infrarenal) Trans 4.32 cm Distal PSV 59.00 cm/sec Aorta Value Units Arteries Value Units FINDINGS: Performing Deli Cutter Slicer: Tom Menendez RVT. Study Quality: Adequate. Abdominal Aorta: Infrarenal abdominal aortic aneurysm measurin.12 by 5.57 cm. Normalbilateral proximal DEB and EIA. Provider Notification: Results called on the above date to Adalberto Davis MD at 8:10am 11-09-24. CONCLUSIONS: 1. Abdominal aortic aneurysm, maximum diameter 5.57cm. HISTORY: 5.1cm by 5.2 cm per CTA 02-07-24. PREVIOUS STUDIES: No previous studies for comparison. DISCLAIMER: The study images and the final report will be retained in the patientchart by the Vascular Laboratory for the legally required time period. This chartconstitutes the legal record of any testing performed. ATTESTATION: I have reviewed and interpreted the pertinent images and measurements ofthis study. I attest to the conclusions in the final report that is provided above. Electronically Signed By: Adalberto TOWNSEND OR 11/09/2024 4:00:17 PM CDT us Adalberto Davis MD IMG US PROCEDURES Final Resu lt * Blood smear review (10/26/2024 8:58 AM CDT) RBC morphology Consistent with RBC Indicies Comment:Testing performed by : [address] [address] Platelet estimate Adequate JACK GÓMEZ Comment:Testing performed by : [facility], [address] [place] [address]., [address] Blood 10/26/2024 8:58 AM CDT 10/26/2024 9:04 AM CDT us Kelsea Campbell MD LAB BLOOD ORDERABLES Final Result JACK GÓMEZ [address] [facility] Department [place] [address] * (ABNORMAL) eGFR (10/26/2024 8:58 AM CDT) eGFR 57(L) >=60 mL/min/1. 73 m2 Comment: Interpretive Data Reference Interval Normal >/= 90 mL/min/1.73m2 Mildly decreased* 60 - 89 mL/min/1.73m2 Mildly to moderately decreased 45 - 59 mL/min/1.73m2 Moderately to severely decreased 30 - 44 mL/min/1.73m2 Severely decreased 15 - 29 mL/min/1.73m2 Kidney Failure < 15 mL/min/1.73m2 *Relative to young adult level Estimated glomerular filtration rate is determined by the 2020 CKD-EPI equation recommended by the National Kidney Foundation (A Unifying Approach to GFR Estimation: Recommendations of the NKF-ASK Task Force on Reassessing the Inclusion of Race in Diagnosing Kidney Disease, JASN 2020). The CKD-EPI equation should not be used for patients with unstable renal function and has not been validated in children and those over 70. Current interpretive data was last reviewed 2021. Testing performed by: [facility], [address] [place] [address]., [address] Blood 10/26/2024 8:58 AM CDT 10/26/2024 9:04 AM CDT us Kelsea N. Shannan MD LAB BLOOD ORDERABLES Final Result [facility] [address] [facility] Department [place] [address] * (ABNORMAL) Differential, auto (10/26/2024 8:58 AM CDT) Neutrophil abs 3.83 1.50 - 6.50 K/cumm Comment:Testing performed by : [address] [address] Imm gran abs 0.07 0.00 - 0.10 K/cumm JACK Comment:Testing performed by : [address] [address] Lymphocyte abs 36.43(H) 0.80 - 3.30 K/cumm JACK Comment:Testing performed by : [address] [address] Monocyte abs 1.13(H) 0.20 - 0.80 K/cumm JACK Comment:Testing performed by : [address] [address] Eosinophil abs 0.20 0.00 - 0.50 K/cumm JACK Comment:Testing performed by : [address] [address] Basophil abs 0.14(H) 0.00 - 0.10 K/cumm JACK Comment:Testing performed by : [address] [address] Neutrophil pct 9.1 % JACK Comment: Differential consistent with previous result. Interpretive Data Percent cell count reference ranges are not reported, since discordance with absolute values may lead to misinterpretation of CBC data. Current Interpretive Data was last revised on 2017. Testing performed by: [address] [address] Imm gran pct 0.2 % JACK Comment: Interpretive Data Percent cell count reference ranges are not reported, since discordance with absolute values may lead to misinterpretation of CBC data. Current Interpretive Data was last revised on 2017. Testing performed by: [address] [address] Lymphocyte pct 87.2 % [facility] Comment: Interpretive Data Percent cell count reference ranges are not reported, since discordance with absolute values may lead to misinterpretation of CBC data. Current Interpretive Data was last revised on 2017. Testing performed by: [address] [address] Monocyte pct 2.7 % [facility] Comment: Interpretive Data Percent cell count reference ranges are not reported, since discordance with absolute values may lead to misinterpretation of CBC data. Current Interpretive Data was last revised on 2017. Testing performed by: [address] [address] Eosinophil pct 0.5 % [facility] Comment: Interpretive Data Percent cell count reference ranges are not reported, since discordance with absolute values may lead to misinterpretation of CBC data. Current Interpretive Data was last revised on 2017. Testing performed by: [address] [address] Basophil pct 0.3 % [facility] Comment: Interpretive Data Percent cell count reference ranges are not reported, since discordance with absolute values may lead to misinterpretation of CBC data. Current Interpretive Data was last revised on 2017. Testing performed by: [address] [address] Blood 10/26/2024 8:58 AM CDT 10/26/2024 9:04 AM CDT Kelsea Campbell MD LAB BLOOD ORDERABLES Final Result [facility] [address] [facility] Department [place] [address] * (ABNORMAL) Immune competence (10/26/2024 8:58 AM CDT) CD3 pct 4(L) 60 - 88 % Comment:Testing performed by : [facility], [address] [facility] [place] [address] CD3 Absolute 1,342 661 - 1,963 cells/mcL [facility] performed by : [facility], [address] [facility], [address] CD4 pct 3(L) 31 - 64 % CERNER Comment:Testing performed by : [facility], [address] [facility], [address] CD4 Absolute 1,050 365 - 1,294 cells/mcL CERNER Comment:Testing performed by : [facility], [address] [facility], [address] CD8 pct 1(L) 12 - 40 % [facility] Comment:Testing performed by : [facility], [address] [facility], [address] CD8 Absolute 331 187 - 781 cells/mcL [facility] Comment:Testing performed by : [facility], [address] [facility], [address] CD19 pct 92(H) 6 - 25 % [facility] Comment:Testing performed by : [facility], [address] [facility], [address] CD19 Absolute >10,000(H) 86 - 488 cells/mcL [facility] Comment: Consistent with previous results. Testing performed by: [facility], [address] [place]., [address] [id number] pct 2(L) 5 - 25 % [facility]:Testing performed by : [facility], [address] [facility], [address] [id number] Absolute 511(H) 76 - 467 cells/mcL [facility] Comment:Testing performed by : [facility], [address] [facility], [address] CD4/CD8 ratio 3.0 0.9 - 4.4 CERNER Comment:Testing performed by : [facility], [address] [facility], [address] Blood 10/26/2024 8:58 AM CDT 10/26/2024 11:23 AM CDT us Kelsea Campbell MD LAB BLOOD ORDERABLES Final Result JACK [address] [facility] Department [place] [address] * (ABNORMAL) CBC with auto differential (10/26/2024 8:58 AM CDT) WBC 41.80(H) 3.80 - 9.90 K/cumm Comment:Testing performed by : [address] [address] Hgb 13.5 13.0 - 17.5 g/dL JACK Comment:Testing performed by : [address] [address] Hct 41.0 38.9 - 50.3 % JACK Comment:Testing performed by : [address] [address] Plt 212 150 - 400 K/cumm JACK Comment:Testing performed by : [address] [address] MPV 10.1 9.1 - 12.3 fL JACK Comment:Testing performed by : [address] [address] RBC 4.43 4.30 - 5.80 M/cumm JACK Comment:Testing performed by : [address] [address] MCV 92.6 81.3 - 96.4 fL JACK Comment:Testing performed by : [address] [address] MCH 30.5 27.1 - 33.3 pg JACK Comment:Testing performed by : [address] [address] MCHC 32.9 32.3 - 35.7 g/dL JACK Comment:Testing performed by : [address] [address] RDW CV 13.2 11.1 - 14.9 % JACK Comment:Testing performed by : [address] [address] RDW SD 44.6 35.7 - 48.1 fL JACK Comment:Testing performed by : [address] [address] NRBC abs 0.00 0.00 - 0.01 K/cumm JACK Comment:Testing performed by : [address] [address] ANC Prelim 3.83 1.50 - 6.50 K/cumm JACK Comment: Interpretive Data The rapid ANC is a preliminary automated count and may vary from the final ANC (Neut Abs) reported in the WBC differential that follows. Current interpretive data was last revised 2024. Testing performed by: [address] [address] Blood 10/26/2024 8:58 AM CDT 10/26/2024 9:04 AM CDT Kelsea Campbell MD LAB BLOOD ORDERABLES Final Result [facility] [address] [facility] Department of Laboratories [place], [place] [id number] * CRP (cardiac risk) (10/26/2024 8:58 AM CDT) [facility] hsCRP 4.20 mg/L Comment: Interpretive data Adult only - values greater than or equal to 10 mg/L are consistent with infection or inflammation. Individuals with evidence of active infection, systemic inflammatory processes, or trauma should not be tested until these conditions have abated. When using HS CRP to assess cardiovascular risk, two measurements should be taken, two weeks apart (averaging results). The CDC/AHA recommended the following HS CRP cut off points (tertiles) for CVD assessment. Adult low risk <1.0 mg/L Average risk 1.0 - 3.0 mg/L High Risk >3.0 mg/L Current interpretive data was last revised on 2018. Testing performed by: [address] [address] Blood 10/26/2024 8:58 AM CDT 10/26/2024 9:04 AM CDT Kelsea Campbell MD LAB BLOOD ORDERABLES Final Result Performing Organization Address [facility] de Phone Number MIGUEL ANGEL[address] [address] * Lactate dehydrogenase (LD) (10/26/2024 8:58 AM CDT) Pathologist [facility] Lactate dehydrogenase (LDH) 143 100 - 250 Units/L Comment:Testing performed by : [address] [address] Blood 10/26/2024 8:58 AM CDT 10/26/2024 9:04 AM CDT Kelsea Campbell MD LAB BLOOD ORDERABLES Final Result Performing Organization Address [facility] de Phone Number [address] [address] * (ABNORMAL) IgG (10/26/2024 8:58 AM CDT) [facility] Immunoglobulin G 554(L) 700 - 1,600 mg/dL Blood 10/26/2024 8:58 AM CDT 10/26/2024 10:20 AM CDT Kelsea Campbell MD LAB BLOOD ORDERABLES Final Result Performing Organization Address [facility] de Phone Number [address] [address] * Comprehensive metabolic panel (10/26/2024 8:58 AM CDT) [facility] Sodium 138 135 - 145 mmol/L Comment:Testing performed by : [address] [address] Potassium, pl 4.9 3.3 - 4.9 mmol/L JACK Comment:Testing performed by : [address] [address] Chloride 103 97 - 110 mmol/L JACK Comment:Testing performed by : [address], [place]., [address] CO2 26 22 - 32 mmol/L JACK Comment:Testing performed by : [address], [place]., [address] Anion gap 9 2 - 15 mmol/L JACK Comment:Testing performed by : [address], [place]., [address] BUN 24 6 - 25 mg/dL [facility] Comment:Testing performed by : [address], [place]., [address] Creatinine 1.30 0.80 - 1.30 mg/dL JACK Comment:Testing performed by : [address], [place]., [address] Glucose 100 70 - 199 mg/dL [facility] Comment: Interpretive Data Fasting glucose >/= 126 mg/dl is diagnostic for diabetes. Fasting is defined as no caloric intake for at least 8 hours. Fasting glucose between 100 mg/dl to 125 mg/dl is diagnostic of prediabetes. In a patient with classic symptoms of hyperglycemia or hyperglycemic crisis, a random glucose >/= 200 mg/dl is diagnostic for diabetes. In the absence of unequivocal hyperglycemia, results should be confirmed by repeat testing. The classification and Diagnosis of Diabetes Diabetes Care 202; 46: S19-S40. Current interpretive data was last revised 2022. Testing performed by: [address] [address] Calcium 10.1 8.5 - 10.3 mg/dL JACK Comment:Testing performed by : [address] [address] Bilirubin, total 0.3 0.1 - 1.2 mg/dL JACK Comment:Testing performed by : [address] [address] Protein, pl 6.8 6.5 - 8.5 g/dL JACK Comment:Testing performed by : [address] [address] Albumin 4.6 3.5 - 5.0 g/dL JACK GÓMEZ Comment:Testing performed by : [facility], [address] [place] [address]., [address] Alk phos 89 40 - 130 Units/L JACK Comment:Testing performed by : [address] [address] ALT 15 7 - 55 Units/L JACK GÓMEZ Comment:Testing performed by : [address] [address] AST 16 10 - 50 Units/L JACK Comment:Testing performed by : [address] [address] Blood 10/26/2024 8:58 AM CDT 10/26/2024 9:04 AM CDT us Kelsea Campbell MD LAB BLOOD ORDERABLES Final Result JACK [address] [facility] Department [place] [address] * PSA, total and free (10/15/2024 1:17 PM CDT) PSA 0.2 < OR = 4.0 ng/mL [facility] PSA, free <0.1 ng/mL [facility] PSA, free UNABLE TO CALCULATE >25 % (calc) [facility] Comment: The free PSA level is below detectable limits. We are unable to calculate a % free PSA. PSA(ng/mL) Free PSA(%) Estimated(x) Probability of Cancer(as%) 0-2.5 (*) Approx. 1 2.6-4.0(1) 0-27(2) 24(3) 4.1-10(4) 0-10 56 11-15 28 16-20 20 21-25 16 >or =26 8 >10(+) N/A >50 References:(1)Michael et al.:Urology 60: 469-474 (2002) (2)Michael et al.:J.Urol 168: 922-925 (2002) Free PSA(%) Sensitivity(%) Specificity(%) < or = 25 85 19 < or = 30 93 9 (3)Catalona et al.:DAKOTA 277: 9287-9849 (1996) (4)Catalona et al.:DAKOTA 279: 5475-2576 (1997) (x)These estimates vary with age, ethnicity, family history and MAYO results. (*)The diagnostic usefulness of % Free PSA has not been established in patients with total PSA below 2.6 ng/mL (+)In men with PSA above 10 ng/mL, prostate cancer risk is determined by total PSA alone. The Total PSA value from this assay system is standardized against the equimolar PSA standard. The test result will be approximately 20% higher when compared to the WHO-standardized Total PSA (Siemens assay). Comparison of serial PSA results should be interpreted with this fact in mind. PSA was performed using the [place] Immunoassay method. Values obtained from different assay methods cannot be used interchangeably. PSA levels, regardless of value, should not be interpreted as absolute evidence of the presence or absence of disease. Blood 10/15/2024 1:17 PM CDT 10/15/2024 1:17 PM CDT Karin Almaguer PATTERN ATTENDANT LAB BLOOD ORDERABLES F inal Result [facility] [address] [place] [address] from Last 3 Months Insurance MEDICARE [facility] MEDICARE MEDICARE [facility] [place] [address] Advance Directives For more information, please contact: [phone] * Full Code (Latest Code Status on File) Date Activated Date Inactivated Comments 12/15/2024 12:44 PM 12/16/2024 8:18 PM Care Teams Nurse Unit Manager Relationship Specialty Start Date End Date Maciej Castaneda MD PCP - General 07/30/16 Ruiz Palafox MD [address] [place] [address] Radiation Oncologist Radiation Oncology 01/21/18 Simon Lloyd MD [address] [place] [address] Consulting Physician Urology 01/21/18 Karin Almaguer NP [address] [place] [address] Nurse Practitioner Nurse Practitioner 07/05/20 Cindy Hawkins DO [address] [place] [address] Referring Physician Internal Medicine 11/01/23 [place] [address] [place] [address] Consulting Physician Vascular Surgery 12/16/24
--- OUTSIDE RECORDS SUMMARY | 2024-12-30 12:39 | XMS_ITS ---
Author Organization [facility] Address [address] [place] [address] Care Team Providers Care Alligator Trapper Name Role Phone Maciej Castaneda MD Primary Care Provider Ruiz Palafox MD Unavailable Simon Lloyd MD Unavailable Karin Almaguer HIDE TRIMMER Unavailable [phone] Cindy Hawkins DO Unavailable [phone] Adalberto Apple MD Unavailable Active Problems Problem Noted Date Diagnosed Date [...] (02/20/2019): Added automatically from request for surgery [id number] Anxiety 10/01/2018 OAB (overactive bladder) 10/01/2018 Gastroesophageal [...] prostate cancer 01/21/2018 CLL (chronic lymphocytic leukemia) ([facility]) 07/2016 Chronic obstructive lung disease 11/24/2014 Dermatochalasis 08/18/2014 Hypertension 09/17/2013 Assessment & Plan (12/15/2024 10:33 AM CDT): - OU, VS q2 hrs and PRN - Home regimen: lisinopril - Resume home lisinopril when able Hyperlipidemia 09/17/2013 Contracture of palmar fascia 05/26/2013 Presbyopia 05/26/2013 Current Treatment and Therapy Plans No current plan information found. Past Treatment and Therapy Plans No past plan information found. Lifetime Dose Tracking * Chemical Lifetime Dose Automatic Entry Manual Entr y Air kerma at the reference point (Ka,r) 1,409 mGy 0 mGy 1,409 mGy
--- OUTSIDE RECORDS SUMMARY | 2024-12-30 12:39 | XMS_ITS | Encounter Summary ---
Author Organization [facility] Address [address] [place] [address] Phone Care Team Providers Care Margin Clerk Name Role Phone Sigrid Casatneda MD Primary Care Provider Ruiz Palafox MD Unavailable Simon Lloyd MD Unavailable Karin Almaguer NP Unavailable Cindy Hawkins DO Unavailable [phone] Adalberto Apple MD Unavailable Encounter Details Date Type Department Care Team (Late st Contact Info) Description 06/26/2017 Orders Only [facility] ProviderKj MD [address] [place] [address] Social History Tobacco Use Types Packs/Day Years Used Date Smoking Tobacco: Never Assessed Sex and Gender Information Value Date Recorded Sex Assigned at Not on file 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 us Historical Provider MD MANUEL XR PROCEDURES Final R esult documented in this encounter Visit Diagnoses Not on filedocumented in this encounter Care Teams Margin Clerk Relationship Specialty Start Date End Date Sigrid Castaneda MD PCP - General 07/30/16 Ruiz Palafox MD [address] [place] [address] Radiation Oncologist Radiation Oncology 01/21/18 Simon Lloyd MD [address] [place] [address] Consulting Physician Urology 01/21/18 Karin Almaguer NP [address] [place] [address] Nurse Practitioner Nurse Practitioner 07/05/[address] [facility] [place] [address] Referring Physician Internal Medicine 11/01/23 [place] [address] [place] [address] Consulting Physician Vascular Surgery 12/16/24 documented as of this encounter
--- OUTSIDE RECORDS SUMMARY | 2024-12-30 12:39 | XMS_ITS | Encounter Summary ---
Author Organization [facility] Address [address] [place] [address] Phone Care Team Providers Care [employer] Principal Name Role Phone Sigrid Castaneda MD Primary Care Provider Ruiz Palafox MD Unavailable Simon Lloyd MD Unavailable Karin Almaguer NP Unavailable Cindy Hawkins DO Unavailable Adalberto Apple MD Unavailable Encounter Details Date Type Department Care Team (Late st Contact Info) Description 09/23/2017 Orders Only [facility] ProviderKj MD [address] [place] [address] Social History Tobacco Use Types Packs/Day Years Used Date Smoking Tobacco: Former Sex and Gender Information Value Date Recorded Sex Assigned at Not on file 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 us Historical Provider MD MANUEL XR PROCEDURES Final R esult documented in this encounter Visit Diagnoses Not on filedocumented in this encounter Care Teams [employer] Principal Relationship Specialty Start Date End Date Sigrid Castaneda MD PCP - General 07/30/16 Ruiz Palafox MD [address] [place] [address] Radiation Oncologist Radiation Oncology 01/21/18 Simon Lloyd MD [address] [place] [address] Consulting Physician Urology 01/21/18 Karin Almaguer NP [address] [place] [address] Nurse Practitioner Nurse Practitioner 07/05/20 Cindy Hawkins DO [facility] [place] [address] Referring Physician Internal Medicine 11/01/23 [place] [address] [place] [address] Consulting Physician Vascular Surgery 12/16/24 documented as of this encounter
--- OUTSIDE RECORDS SUMMARY | 2024-12-30 12:39 | XMS_ITS | Encounter Summary ---
Author Organization [facility] Health Address [address] [place] [address] Care Team Providers Care Lab Nurse Name Role Phone Maciej Castaneda MD Primary Care Provider Encounter Details Date Type Department Care Team (Late st Contact Info) Description 01/14/2024 Lab Requisition [facility] - DermPath Lab [address] [facility], [place] [phone] Cindy Hawkins DO [address] [facility] 3 [place] [address] Social History Tobacco Use Types Packs/Day Years Used Date Smoking Tobacco: Former Cigarettes 1 35 Smokeless Tobacco: Never Comments:QUIT 2YRS. AGO Alcohol Use Standard Drinks/Week Comments Yes 3 (1 standard drink = 0.6 oz pur e alcohol) Sex and Gender Information Value Date Recorded Sex Assigned at Not on file Legal Sex Male 6:[address] SUPERVISOR Gender Identity Not on file Sexual Orientation Not on file documented as of this encounter Plan of Treatment Not on file documented as of this encounter Procedures Procedure Name Priority Date/Time Associated Diagnosis Comments DERMATOPATHOLOGY Routine 01/14/2024 7:58 AM CDT documented in this encounter Results * DERMATOPATHOLOGY (01/14/2024 7:58 AM CDT) Case Report Dermatopathology Report Case: [id number] Authorizing Provider: Cindy Hawkins DO Collected: 01/14/2024 07:58 AM Ordering Location: [facility] - Received: 01/15/2024 06:35 AM DermPath Lab Pathologist: Sherrie Hilario MD Specimen: Skin, right anterior lower ext 2:52 PM CDT DERMATOPATHOLOGY LABORATORY Final Diagnosis Specimen A. SKIN, right anterior lower ext: SQUAMOUS CELL CARCINOMA, KERATOACANTHOMA TYPE (C44.722) 2:52 PM CDT DERMATOPATHOLOGY LABORATORY at 1452 CDT Clinical History R/O SCC 2:52 PM CDT DERMATOPATHOLOGY LABORATORY Gross Description Specimen A: Received is one formalin filled container labeled with the patient's name and designated right anterior lower ext. The specimen consists of a shave biopsy measuring 11x8x1 mm. Jar 0. 2:52 PM CDT DERMATOPATHOLOGY LABORATORY Microscopic Description Specimen A. SKIN, right anterior lower ext: Sections show an endo exophytic crateriform lesion with a keratotic plug, formed by confluent follicle-like structures with relatively large keratinocytes. 2:52 PM CDT DERMATOPATHOLOGY LABORATORY Disclaimer An external and internal positive and negative controls are appropriate for the histochemical, immunohistochemical and immunofluorescence stain(s) in this case (if any), except where stated explicitly. The performance characteristics of the stain(s) cited in this report were developed and its performance characteristic determined by the Dermatopathology Laboratory at [facility], directed by Dr. Kya Cristina. These tests need not be, and therefore are not, approved by the [place] Food and Drug Administration. The tests are used for clinical purposes. Billing Codes Specimen Charges Stain Charges 63840 1 2:52 PM CDT DERMATOPATHOLOGY LABORATORY Embedded Images 2:52 PM CDT DERMATOPATHOLOGY LABORATORY Pathology/Cytolo gy TISSUE SPECIMEN FROM SKIN / Unknown 01/14/2024 7:58 AM CDT 01/15/2024 6:35 AM CDT us Cindy Hawkins DO LAB - PATHOLOGY/CYTOLOGY ORDERABLES Final Result DERMATOPATHOLOGY LABORATORY [facility] - Department of Dermatology [facility] Medicine [address] [facility], 3rd Floor [place], [place] [id number] [place] [address] documented in this encounter Visit Diagnoses Not on filedocumented in this encounter Care Teams Lab Nurse Relationship Specialty Start [place] [address] [address] [facility] [address] [place] [address] PCP - General 08/15/18 documented as of this encounter
--- OUTSIDE RECORDS SUMMARY | 2024-12-30 12:39 | XMS_ITS | Clinical Summary ---
Author Organization [facility] [employer] Address [address] [place] [address] Care Team Providers Care Acute Care Certified Nursing Assistant Name Role Phone Maciej Castaneda MD Primary Care Provider Source Comments [facility] [employer],non-owned Affiliates and Associated Physician Practices is amultiple site organization consisting of ambulatory clinics and hospital sitesin [place], [place], [place] and [place]. This disclosure is being madepursuant to the Care Everywhere program and may not contain all information available regarding this patient. Last updated 18.[facility] [employer] Allergies No known active allergies Medications * Be aware that medications may not be up to date on this document. Alwaysverify current medications with the patient. lovastatin (MEVACOR) 20 MG tablet Take 20 mg by mouth once daily Active lisinopril (PRINIVIL; ZESTRIL) 10 MG tablet Take 10 mg by mouth once daily Active gabapentin (NEURONTIN) 100 MG capsule Take 1 capsule by mouth every 12 hours 01/29/2019 Active chlorhexidine (PERIDEX) 0.12 % solution SWISH 1 2 OUNCE FOR 30 SECONDS THEN SPIT TWICE DAILY NEEDED 02/25/2020 Active mirtazapine (REMERON) 30 MG tablet 04/23/2020 Active vitamine D3 (CHOLECALCIFERO L) 250 MCG (73434 UT) capsule Take 10,000 Units by mouth once daily Active dexamethasone (DECADRON) 0.5 MG/5ML elixir RINSE 15 ML BY MOUTH FOR 2 MINUTES AND SPIT OUT 4 TIMES DAILY 08/25/2020 Active triamcinolone acetonide (KENALOG IN ORABASE) 0.1 % paste 10/06/2020 Active FLUoxetine (PROZAC) 10 MG capsule 02/10/2021 Active tacrolimus (PROGRAF) 1 MG capsule 03/21/2021 Active Active Problems Problem Noted Date Diagnosed Date Urgency incontinence 03/29/2021 Immunizations Immunization Administration Dates Next Due INFLUENZA VACCINE, TRIV. (AF LURIA, FLUZONE TRIVALENT; 6MO+) (IIV3) 02/25/2014 Covid Provender primary monoval ent 12+ yr 0.3mL Purple cap 03/11/2021,07/21/2020,06/29/2020 INFLUENZA VACCINE 02/01/2021, 0,03/04/2019,2016 INFLUENZA VACCINE, CELL CULT URE, QUADR. (FLUCELVAX QUADRIVALENT; 6MO+), 0.5 ML (CCIIV4) 03/04/2019 INFLUENZA VACCINE, HIGH-DOSE , QUADR. (FLUZONE HIGH-DOSE QUADRIVALENT; 65Y+), 0.7 ML (HD-IIV4) 02/19/2020,02/02/2020,03/04/2019,2017,01/16/2017,02/09/2016,2015 PNEUMOCOCCAL PPSV23 02/02/2020,09/17/2013 Pneumococcal Pcv13 Conj 01/29/2019,02/29/2016 TDAP (7yrs+) 09/17/2013 ZOSTER VACCINE, LIVE 03/19/2016,10/14/2013 Zoster Hzv Vacc Recombinant Inj Im 09/13/2020, Social History Tobacco Use Types Packs/Day Years Used Date Smoking Tobacco: Former Cigarettes 1 35 Smokeless Tobacco: Never Tobacco Cessation:Counseling Given: No Comments:QUIT 2YRS. 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 Gender Identity Not on file Sexual Orientation Not on file Last Filed Vital Signs Vital Sign Reading Time Taken Comments Blood Pressure 121/72 03/29/2021 1:25 PM BURNER SHAFT Pulse 76 03/29/2021 1:25 PM BURNER SHAFT Temperature 37.1 C (98.8 F) 03/29/2021 1:25 PM BURNER SHAFT Respiratory Rate 16 02/08/2021 3:14 PM CDT Oxygen Saturation 96% 03/29/2021 1:25 PM BURNER SHAFT Inhaled Oxygen Concentration - - Weight 76.7 kg (169 lb 3.2 oz) 03/29/2021 1:25 P M BURNER SHAFT Height 172.7 cm (5' 8) 03/29/2021 1:25 PM BURNER SHAFT Body Mass Index 25.73 03/29/2021 1:25 PM BURNER SHAFT Plan of Treatment Health Maintenance Due Date Last Done Comments MEDICARE AWV 12 MONTHS 1950 HEPATITIS C SCREENING 03/02/1966 Respiratory Syncytial Virus (RSV) Vaccine Pt: or over 60 yrs (1 - 1-dose 75+ series) 2023 DTAP/TDAP/TD VACCINES (2 - Td or Tdap) 09/18/2023 09/17/2013 COVID-19 VACCINE ( season) 2024 03/11/2021, 07/21/2020, 06/29/2020 DEPRESSION SCREENING 05/20/2024 INFLUENZA VACCINE (#1) 2025 , 02/19/2020, 02/19/2020, Additional history exists PNEUMOCOCCAL VACCINE 50+ Completed 020, 01/29/2019, 02/29/2016, Additional history exists ZOSTER VACCINE Completed 09/13/2020, 05/2020, 03/19/2016, Additional history exists HEPATITIS B VACCINE Aged Out No longe r eligible based on patient's age to complete this topic HIB VACCINE Aged Out No longer eligi ble based on patient's age to complete this topic HPV VACCINE Aged Out No longer eligi ble based on patient's age to complete this topic MENINGOCOCCAL (Group B) VACCINE SHARED DECISION-MAKING Aged Out No longer eligible based on patient's age to complete this topic MENINGOCOCCAL GROUPS A/C/Y/W VACCINE Aged Out No longer eligible based on patient's age to complete this topic Insurance MEDICARE [employer] Care Teams Acute Care Certified Nursing Assistant Relationship Specialty Start [place] [address] [address] [facility] [address] [place] [address] PCP - General 08/15/18
--- OUTSIDE RECORDS SUMMARY | 2024-12-30 12:39 | XMS_ITS | Encounter Summary ---
Author Organization [facility] Health Address [address] [place] [address] Care Team Providers Care Cardiopulmonary Physical Therapist Name Role Phone Maciej Castaneda MD Primary Care Provider [phone] Encounter Details Date Type Department Care Team (Late st Contact Info) Description 02/07/2023 Lab Requisition [facility] - DermPath Lab [address] [facility], [place] [address] Cindy Hawkins DO [address] [facility] 3 [place] [address] Social History Tobacco Use Types Packs/Day Years Used Date Smoking Tobacco: Former Cigarettes 1 35 Smokeless Tobacco: Never Comments:QUIT 2YRS. 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 Gender Identity Not on file Sexual Orientation Not on file documented as of this encounter Plan of Treatment Not on file documented as of this encounter Procedures Procedure Name Priority Date/Time Associated Diagnosis Comments DERMATOPATHOLOGY Routine 02/07/2023 9:27 AM CDT documented in this encounter Results * DERMATOPATHOLOGY (02/07/2023 9:27 AM CDT) Case Report Dermatopathology Report Case: [id number] Authorizing Provider: Cindy Hawkins DO Collected: 02/07/2023 09:27 AM Ordering Location: [facility] DermPath Lab Received: 02/07/2023 04:49 PM Pathologist: Danuta Mccain MD Specimen: Skin, left ear fossa 1:05 PM T DERMATOPATHOLOGY LABORATORY Final Diagnosis Specimen A. SKIN, left ear fossa: GRANULOMATOUS DERMATITIS (L92.8) (see microscopic description and comment) 1:05 PM T DERMATOPATHOLOGY LABORATORY at 1305 CDT Clinical History R/O BCC, painful 1:05 PM T DERMATOPATHOLOGY LABORATORY Gross Description Specimen A: Received is one formalin filled container labeled with the patient's name and designated left ear fossa. The specimen consists of a shave biopsy measuring 3x3x1 mm. Jar 0. 1:05 PM [facility] DERMATOPATHOLOGY LABORATORY Microscopic Description Specimen A. SKIN, left ear fossa: Histiocytes, and multinucleated giant cells are present within the dermis. The cells are positive for CD163 and negative for p63 or SOX-10. Additional deeper sections were obtained and reviewed. COMMENT: Given the location adjacent to hair follicle, granulomatous dermatitis due to ruptured hair follicle or cyst is favored. However, given the superficial nature of the biopsy, other causes of granulomatous dermatitis cannot be excluded. 1:05 PM [facility] DERMATOPATHOLOGY LABORATORY Disclaimer An external and internal positive and negative controls are appropriate for the histochemical, immunohistochemical and immunofluorescence stain(s) in this case (if any), except where stated explicitly. The performance characteristics of the stain(s) cited in this report were developed and its performance characteristic determined by the Dermatopathology Laboratory at [facility], directed by Dr. Kya Cristina. These tests need not be, and therefore are not, approved by the [place] Food and Drug Administration. The tests are used for clinical purposes. Billing Codes Specimen Charges Stain Charges 28994 1 97831 22286 86639 1 1 1 3 1:05 PM CDT DERMATOPATHOLOGY LABORATORY Embedded Images 1:05 PM T DERMATOPATHOLOGY LABORATORY Pathology/Cytolo gy TISSUE SPECIMEN FROM SKIN / Unknown 02/07/2023 9:27 AM CDT 02/07/2023 4:49 PM CDT us Cindy Hawkins DO LAB - PATHOLOGY/CYTOLOGY ORDERABLES Final Result DERMATOPATHOLOGY LABORATORY [facility] - Department of Dermatology [place] [address] [facility], 3rd Floor [address] [phone] documented in this encounter Visit Diagnoses Not on filedocumented in this encounter Care Teams Cardiopulmonary Physical Therapist Relationship Specialty Start [place] [address] [address] [facility] [address] [place] [address] PCP - General 08/15/18 documented as of this encounter
--- OUTSIDE RECORDS SUMMARY | 2024-12-30 12:39 | XMS_ITS | Encounter Summary ---
Author Organization [facility] Health Address [address] [place] [address] Care Team Providers Care Search Engine Optimization Specialist Name Role Phone Maciej Castaneda MD Primary Care Provider [phone] Encounter Details Date Type Department Care Team (Late st Contact Info) Description 04/22/2024 Lab Requisition [facility] - DermPath Lab [address] [facility], [place] [address] Velma Dahl MD [address] [facility] 3 [place] [address] Social History Tobacco Use Types Packs/Day Years Used Date Smoking Tobacco: Former Cigarettes 1 35 Smokeless Tobacco: Never Comments:QUIT 2YRS. 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 Gender Identity Not on file Sexual Orientation Not on file documented as of this encounter Plan of Treatment Not on file documented as of this encounter Procedures Procedure Name Priority Date/Time Associated Diagnosis Comments DERMATOPATHOLOGY Routine 04/22/2024 1:11 PM GAS FITTER APPRENTICE documented in this encounter Results * DERMATOPATHOLOGY (04/22/2024 1:11 PM GAS FITTER APPRENTICE) Case Report Dermatopathology Report Case: [id number] Authorizing Provider: Velma Dahl MD Collected: 04/22/2024 01:11 PM Ordering Location: [facility] - Received: 04/23/2024 01:25 PM DermPath Lab Pathologist: Sherrie Hilario MD Specimen: Skin, left submental 4 2:04 PM [facility] DERMATOPATHOLOGY LABORATORY Final Diagnosis Specimen A. 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 The specimen consists of a shave biopsy measuring 7x5x1 mm. Jar 0. 2:04 PM [facility] DERMATOPATHOLOGY LABORATORY Microscopic Description Specimen A. SKIN, left submental: Sections show a proliferation of blood vessels in lobules lined by uniform endothelial cells and by fibrous septa. 2:04 PM [facility] DERMATOPATHOLOGY LABORATORY Disclaimer An external and internal positive and negative controls are appropriate for the histochemical, immunohistochemical and immunofluorescence stain(s) in this case (if any), except where stated explicitly. The performance characteristics of the stain(s) cited in this report were developed and its performance characteristic determined by the Dermatopathology Laboratory at [facility], directed by Dr. Kya Cristina. These tests need not be, and therefore are not, approved by the [place] Food and Drug Administration. The tests are used for clinical purposes. Billing Codes Specimen Charges Stain Charges 86567 1 4 2:04 PM [facility] DERMATOPATHOLOGY LABORATORY Embedded Images 2:04 PM [facility] DERMATOPATHOLOGY LABORATORY Pathology/Cytolo gy TISSUE SPECIMEN FROM SKIN / Unknown 04/22/2024 1:11 PM GAS FITTER APPRENTICE 04/23/2024 1:25 PM GAS FITTER APPRENTICE us Velma Dahl MD LAB - PATHOLOGY/CYTOLOGY OR DERABLES Final Result DERMATOPATHOLOGY LABORATORY [facility] - Department of Dermatology [address], [address] Floor [place] [id number] [phone] documented in this encounter Visit Diagnoses Not on filedocumented in this encounter Care Teams Search Engine Optimization Specialist Relationship Specialty Start [place] [address] [address] [facility] [address] [place] [address] PCP - General 08/15/18 documented as of this encounter
--- OUTSIDE RECORDS SUMMARY | 2024-12-30 12:39 | XMS_ITS | Encounter Summary ---
Author Organization [facility] Health Address [address] [place] [address] Care Team Providers Care Landscape Crew Member Name Role Phone Maciej Castaneda MD Primary Care Provider [phone] Encounter Details Date Type Department Care Team (Late st Contact Info) Description 12/04/2022 Lab Requisition [facility] - DermPath Lab [address] [facility], [place] [phone] Cindy Hawkins DO [address] [facility] [address] [place] [address] Social History Tobacco Use Types Packs/Day Years Used Date Smoking Tobacco: Former Cigarettes 1 35 Smokeless Tobacco: Never Comments:QUIT 2YRS. 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 Gender Identity Not on file Sexual Orientation Not on file documented as of this encounter Plan of Treatment Not on file documented as of this encounter Procedures Procedure Name Priority Date/Time Associated Diagnosis Comments DERMATOPATHOLOGY Routine 12/04/2022 2:49 PM CDT documented in this encounter Results * DERMATOPATHOLOGY (12/04/2022 2:49 PM CDT) Case Report Dermatopathology Report Case: [id number] Authorizing Provider: Cindy Hawkins DO Collected: 12/04/2022 02:49 PM Ordering Location: [facility] DermPath Lab Received: 12/06/2022 07:51 AM Pathologist: Sherrie Hilario MD Specimen: Skin, mid upper back 12:42 PM T DERMATOPATHOLOGY LABORATORY Final Diagnosis Specimen A. 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 The specimen consists of a non-oriented ellipse of skin measuring 42f83n1 mm. The epidermal surface is unremarkable. The margin is inked green. The 12 o'clock and 6 o'clock tips are submitted in cassette 1. The remainder of the ellipse is serially sectioned and submitted in cassette 2-3. Jar 0. 12:42 PM T DERMATOPATHOLOGY LABORATORY Microscopic Description Specimen A. SKIN, mid upper back: The epidermis shows parakeratosis, full thickness disorderly maturation of keratinocytes, mitoses at different levels, and dyskeratotic cells. This lesion is not present at the margin of the specimen. There are fibroblasts and collagen bundles oriented parallel to the skin surface with elongated blood vessels, some of which are oriented perpendicular to the skin surface. 12:42 PM T DERMATOPATHOLOGY LABORATORY Disclaimer An external and internal positive and negative controls are appropriate for the histochemical, immunohistochemical and immunofluorescence stain(s) in this case (if any), except where stated explicitly. The performance characteristics of the stain(s) cited in this report were developed and its performance characteristic determined by the Dermatopathology Laboratory at [facility], directed by Dr. Kya Cristina. These tests need not be, and therefore are not, approved by the [place] Food and Drug Administration. The tests are used for clinical purposes. Billing Codes Specimen Charges Stain Charges 60392 1 12:42 PM CDT DERMATOPATHOLOGY LABORATORY Embedded Images 07/21/202 3 12:42 PM CDT DERMATOPATHOLOGY LABORATORY Pathology/Cytolo gy TISSUE SPECIMEN FROM SKIN / Unknown 12/04/2022 2:49 PM CDT 12/06/2022 7:51 AM CDT us Cindy Kyravaleria Hawkins DO LAB - PATHOLOGY/CYTOLOGY ORDERABLES Final Result DERMATOPATHOLOGY LABORATORY [facility] - Department of Dermatology [facility] [address] [place] [address], [address] [phone] documented in this encounter Visit Diagnoses Not on filedocumented in this encounter Care Teams Landscape Crew Member Relationship Specialty Start [place] [address] [place] [address] [place] [address] PCP - General 08/15/18 documented as of this encounter
--- OUTSIDE RECORDS SUMMARY | 2024-12-30 12:39 | XMS_ITS | Encounter Summary ---
Author Organization [facility] Health Address [address] [place] [address] Care Team Providers Care Major Appliance Assembly Supervisor Name Role Phone Maciej Castaneda MD Primary Care Provider [phone] Encounter Details Date Type Department Care Team (Late st Contact Info) Description 12/17/2023 Lab Requisition [facility] - DermPath Lab [address] [place] [id number] Velma Dahl MD [address] [facility] [address] [place] [address] Social History Tobacco Use Types Packs/Day Years Used Date Smoking Tobacco: Former Cigarettes 1 35 Smokeless Tobacco: Never Comments:QUIT 2YRS. AGO Alcohol Use Standard Drinks/Week Comments Yes 3 (1 standard drink = 0.6 oz pur e alcohol) Sex and Gender Information Value Date Recorded Sex Assigned at Not on file Legal Sex Male 6:22 AM [employer] Gender Identity Not on file Sexual Orientation Not on file documented as of this encounter Plan of Treatment Not on file documented as of this encounter Procedures Procedure Name Priority Date/Time Associated Diagnosis Comments DERMATOPATHOLOGY Routine 12/17/2023 10:5 2 AM CDT documented in this encounter Results * DERMATOPATHOLOGY (12/17/2023 10:52 AM CDT) Case Report Dermatopathology Report Case: [id number] Authorizing Provider: Velma Dahl MD Collected: 12/17/2023 10:52 AM Ordering Location: [facility] - Received: 12/18/2023 01:16 PM DermPath Lab Pathologist: Steffi Hilario MD Specimen: Skin, right upper arm 1:50 PM CDT DERMATOPATHOLOGY LABORATORY Final Diagnosis Specimen A. SKIN, right upper arm: VACUOLAR INTERFACE DERMATITIS AND PALISADED GRANULOMATOUS DERMATITIS (L30.8) (see microscopic description and comment) 1:50 PM CDT DERMATOPATHOLOGY LABORATORY at 1350 CDT Clinical History LP vs CTD vs DM vs ACD/ICD vs AD 1:50 PM CDT DERMATOPATHOLOGY LABORATORY Gross Description Specimen A: Received is one formalin filled container labeled with the patient's name and designated right upper arm. The specimen consists of a punch biopsy measuring 4x4x5 mm. Jar 0. 1:50 PM CDT DERMATOPATHOLOGY LABORATORY Microscopic Description Specimen A. SKIN, right upper arm: There is compact orthokeratosis. At the dermal-epidermal junction, there are scattered dyskeratotic keratinocytes and vacuolar alteration along the basal cell layer. A mild, perivascular lymphocytic infiltrate is observed in the superficial dermis along with scattered melanophages. Within the mid-reticular dermis, there are collections of histiocytes between collagen bundles some of which are arranged in a palisade. The collagen is focally altered. Sidney tissue stain is negative for mycobacterial organisms. Grocott's methenamine silver (GMS) stain fails to highlight fungal elements in the available sections. COMMENT: The combination of an interface dermatitis superimposed upon a palisaded granulomatous dermatitis raises strong consideration for a reactive granulomatous dermatitis (also known as lichenoid and granulomatous dermatitis). The differential diagnosis of this histologic reaction pattern includes, in decreasing frequency, a drug-induced hypersensitivity, lichenoid keratosis (if solitary), and ihj-cyjd-juiapin hypersensitivity (tattoo reaction, postherpetic dermatitis, scabies and post-scabetic dermatitis). Less commonly, these histologic findings can be seen in pigmented purpuric dermatoses and lichen striatus. Additionally, this reaction pattern may be seen in patients with endocrinopathies, underlying granulomatous systemic disorders, or with a history of viral, fungal, or bacterial infections. Vacuolar interface dermatitis (secondary to connective tissue disease) superimposed on a background of granuloma annulare was also considered, but seems less likely. Clinicopathologic correlation is recommended. See references below. References: (1) Samir DS, Eris A, Robert A, Soswapnil O, Aguila J, Iron K. Lichenoid granulomatous dermatitis revisited: A retrospective case series. J Am Acad Dermatol. 2019 Mar;81(5):9326-3258 . PMID: 65614886. (2) Charis MOSES, Hilary AN. Lichenoid and granulomatous dermatitis. Int J Dermatol. 2000 Jun;39(2):126-33. PMID: 69413762. 4 1:50 PM CDT DERMATOPATHOLOGY LABORATORY Disclaimer An external and internal positive and negative controls are appropriate for the histochemical, immunohistochemical and immunofluorescence stain(s) in this case (if any), except where stated explicitly. The performance characteristics of the stain(s) cited in this report were developed and its performance characteristic determined by the Dermatopathology Laboratory at [facility], directed by Dr. Kya Cristina. These tests need not be, and therefore are not, approved by the [place] Food and Drug Administration. The tests are used for clinical purposes. Billing Codes Specimen Charges Stain Charges 82179 1 30809 30853 1 1 4 1:50 PM CDT DERMATOPATHOLOGY LABORATORY Embedded Images 4 1:50 PM CDT DERMATOPATHOLOGY LABORATORY Pathology/Cytolo gy TISSUE SPECIMEN FROM SKIN / Unknown 12/17/2023 10:52 AM CDT 12/18/2023 1:16 PM CDT us Velma Dahl MD LAB - PATHOLOGY/CYTOLOGY OR DERABLES Final Result DERMATOPATHOLOGY LABORATORY [facility] - Department of Dermatology [facility] [address] [place] [address], [facility] [phone] documented in this encounter Visit Diagnoses Not on filedocumented in this encounter Care Teams Major Appliance Assembly Supervisor Relationship Specialty Start [place] [address] [address] [facility] [address] [place] [address] PCP - General 08/15/18 documented as of this encounter
== END 2024-12-30 12:37 | disposition home or self-care (01) ==
LOC: ANHAUDIO 12:36
PROVIDERS: PCP Internal Medicine; Visit Provider Otolaryngology
DX: H90.3 Sensorineural hearing loss, bilateral (principal); H74.8X2 Other specified disorders of left middle ear and mastoid; H93.8X9 Other specified disorders of ear, unspecified ear
CPT/HCPCS: 92557; 92567